=== PATIENT | female | born 1960 | race Caucasian/White ===

== ENCOUNTER → 2024-03-04 06:15 | Day surgery (SDC) | payer OTHER, SELFPAY | LOC: GI 06:15 | PROVIDERS: ATTENDING PHYSICIAN Internal Medicine; FAMILY PHYSICIAN Family Medicine | DX: R10.13 Epigastric pain (principal); K29.80 Duodenitis without bleeding; K29.50 Unspecified chronic gastritis without bleeding; B96.81 Helicobacter pylori [H. pylori] as the cause of diseases classified elsewhere | CPT/HCPCS: 43239; 88305; 88342 ==

== ENCOUNTER → 2024-07-16 15:17 | Outpatient (REF) | payer OTHER, SELFPAY | LOC: RAD 15:17 | PROVIDERS: ATTENDING PHYSICIAN Family Medicine | DX: Z78.0 Asymptomatic menopausal state (principal) | CPT/HCPCS: 77080 ==

== ENCOUNTER 2024-07-26 16:27 | Emergency (ER) | payer OTHER, SELFPAY ==
[2024-07-26 16:29] VITALS: BP 128/88
--- NOTE | 2024-07-26 16:30 | ED.GENMED ---
ED Provider Triage
<Glendy Moss SENIOR MANAGER [facility] - Last Filed: 07/26/24 18:50>
-
Patient seen by provider in Triage?: Seen in Triage
Attestation: A medical screening examination has been initiated by a qualified medical provider. Based on the assessment performed at this time, it has been determined that an emergent medical condition may exist and the patient has been informed
that further medical evaluation and possible additional diagnostic testing may be needed.
HPI: 63-year-old female here for abdominal 'discomfort and distention,' and pencil thin stools with an orangey color she thinks is blood for past month. Sees GI Dr. Muñiz, spoke with her on phone last week, CT scan scheduled for 08/03, pt states she
can't wait that long. Nausea, no vomiting.
Pt extremely distended, thinks she's obstructed, requesting obstruction series before having to drink for CT scan. She is willing to start drinking slowly pending obstruction series result.
GENERAL: Alert , in no apparent distress
EYE: No visual abnormalities.
NECK: Trachea midline
ENT: No visible abnormalities.
LUNGS: No acute respiratory distress
NEUROLOGICAL: Alert and oriented
SKIN: Skin intact. No visible changes.
MUSCULOSKELETAL: Moving extremities normally
PSYCH: Normal and appropriate interaction.
This is a medical evaluation conducted in person to initiate diagnostic evaluation and provide initial therapeutics. Please see further documentation by the treating clinician. Constipation, last BM was 5 days ago
History of Present Illness
<Glendy Moss SENIOR MANAGER [facility] - Last Filed: 07/26/24 18:50>
General
Chief Complaint: Abdominal Symptoms
Time Seen by Provider: 07/26/24 19:48
<Otis Perez MD - Last Filed: 07/26/24 20:08>
General
Source: patient
Exam Limitations: none
Nursing documentation reviewed up to this point in time: agreed with
History of Present Illness
History of Present Illness:
63-year-old female with a past medical history of depression who presents to the emergency department for evaluation of abdominal pain and constipation. Patient reports that symptoms have been ongoing since he reports that she had a bowel
movement morning and has been constipated since then. She has been having some increased abdominal distention and discomfort and ultimately decided to come to the ER for evaluation. She has some mild nausea no vomiting. No fevers or
chills. No urinary symptoms. She reports that she did try an enema as well as [id number] bowel regimens and teas but these efforts have not helped. She says she has had irregular bowel movements really since March when she was treated
for H. pylori through GI. She says she is scheduled for outpatient CT scan in late July and possibly follow-up colonoscopy with Dr. Muñiz. She has a past surgical history of appendectomy and tubal ligation.
Review of Systems
<Otis Perez MD - Last Filed: 07/26/24 20:08>
Review of Systems
All Other Systems: ROS reviewed and negative except as documented in HPI and ROS
Constitutional: Denies fever or chills
Respiratory: Denies trouble breathing
Cardiac: Denies chest pain
ABD/GI: Reports abdominal pain, nausea and constipated; Denies vomiting or diarrhea
: Denies dysuria, frequency or flank pain
Neurological: Denies dizzy or headache
Phy Exam
<Otis Perez MD - Last Filed: 07/26/24 20:08>
Physical Exam
Physical Exam:
General: Awake, alert, oriented x3; no acute distress
Head: Normocephalic, atraumatic
Eyes: Conjunctiva normal, EOMI
Throat: Airway intact, handling secretions
Neck: Trachea midline
Lungs: Breathing comfortably with no distress, no evidence of accessory muscle use
Heart: Regular rate
Abd: Soft, mildly distended, mild tenderness in the lower abdomen
Neuro: No gross deficits
Skin: no rash
Extremities: No edema in extremities, warm and well-perfused
Scores
<Otis Perez MD - Last Filed: 07/26/24 20:08>
Heart Failure Risk
Heart Failure Risk Score: Not Applicable
Heart Score for Chest Pain Patients
STEMI patient?: Not applicable
Withdrawal Assessment of Alcohol
Withdrawal Assessment Completed?: Not applicable
Course
<Glendy Moss NP - Last Filed: 07/26/24 18:50>
Orders/Labs/Results
Orders:
Orders
07/26/24 16:36
Ondansetron Orally Disint [Zofran Odt (Orally Disintegrating)] 4 mg PO NOW STA
07/26/24 16:37
Abdominal Series [CR Obstruct Series W/pa Chest] Urgent
Comment:
Reason For Exam: pain, bloating last BM 4 d ago, can't pass gas
07/26/24 16:46
Iohexol [Omnipaque] 50 ml .ROUTE .STK-MED ONE
07/26/24 16:49
Complete Blood Count/With Diff Urgent
Comprehensive Metabolic Panel Urgent
07/26/24 16:52
Iohexol [Omnipaque] See Protocol PO NOW STA
07/26/24 18:57
CT Abd/pel W Iv And Oral Contr Urgent
Comment:
Reason For Exam: bloating, pain
Iohexol [Omnipaque] See Protocol PO NOW STA
07/26/24 20:01
Magnesium Citrate [Citroma] 300 ml PO ONCE ONE
Abnormal Lab Results
07/26/24
16:49
MCH 31.8 H pg
(27.0-31.0)
Glucose 168 H mg/dl
(70-99)
07/26/24 16:49
07/26/24 16:49
Vital Signs
Initial and Last Documented VS:
Initial Vital Signs
Temp Pulse Resp BP Pulse Ox
36.6 C 68 20 128/88 97
07/26/24 16:29 07/26/24 16:29 07/26/24 16:29 07/26/24 16:29 07/26/24 16:29
Last Documented Vital Signs
Temp Pulse Resp BP Pulse Ox
36.6 C 68 20 128/88 97
07/26/24 16:29 07/26/24 16:29 07/26/24 16:29 07/26/24 16:29 07/26/24 16:29
<Otis Perez MD - Last Filed: 07/26/24 20:08>
Orders/Labs/Results
Orders:
Orders
07/26/24 16:36
Ondansetron Orally Disint [Zofran Odt (Orally Disintegrating)] 4 mg PO NOW STA
07/26/24 16:37
Abdominal Series [CR Obstruct Series W/pa Chest] Urgent
Comment:
Reason For Exam: pain, bloating last BM 4 d ago, can't pass gas
07/26/24 16:46
Iohexol [Omnipaque] 50 ml .ROUTE .STK-MED ONE
07/26/24 16:49
Complete Blood Count/With Diff Urgent
Comprehensive Metabolic Panel Urgent
07/26/24 16:52
Iohexol [Omnipaque] See Protocol PO NOW STA
07/26/24 18:57
CT Abd/pel W Iv And Oral Contr Urgent
Comment:
Reason For Exam: bloating, pain
Iohexol [Omnipaque] See Protocol PO NOW STA
07/26/24 20:01
Magnesium Citrate [Citroma] 300 ml PO ONCE ONE
Abnormal Lab Results
07/26/24
16:49
MCH 31.8 H pg
(27.0-31.0)
Glucose 168 H mg/dl
(70-99)
07/26/24 16:49
07/26/24 16:49
Vital Signs
Initial and Last Documented VS:
Initial Vital Signs
Temp Pulse Resp BP Pulse Ox
36.6 C 68 20 128/88 97
07/26/24 16:29 07/26/24 16:29 07/26/24 16:29 07/26/24 16:29 07/26/24 16:29
Last Documented Vital Signs
Temp Pulse Resp BP Pulse Ox
36.6 C 68 20 128/88 97
07/26/24 16:29 07/26/24 16:29 07/26/24 16:29 07/26/24 16:29 07/26/24 16:29
<Otis Perez MD - Last Filed: 07/26/24 20:08>
MDM/Problems Addressed
Differential Diagnosis Includes:
Constipation, bowel obstruction, diverticulitis
MDM/Problems Addressed:
63-year-old female presents for evaluation of constipation and abdominal pain x 4 days. Vitals and exam as above. She was seen in triage and labs were sent off including a CBC and a CMP�reviewed labs and they showed no clinically significant
abnormalities. She had an obstruction series reviewed by me shows no clear bowel obstruction but mild constipation. Follow-up CT with p.o. and IV contrast showed constipation but no other acute intra-abdominal pathology. Suspect constipation as
cause for symptoms. Will treat with magnesium citrate and started on MiraLAX. We spoke about lifestyle interventions including healthy diet, light exercise and increased water intake. She is already established with gastroenterology (Dr. Muñiz)
and will follow-up as an outpatient. She feels very comfortable with this plan. All questions answered.
<Otis Perez MD - Last Filed: 07/26/24 20:08>
*Radiology
Radiology exam reviewed: radiology read reviewed
*Pulse Oximetry
Patient hypoxic: no
*Critical Care Note
Total Time (30-74mins, 75-104mins- exclusive of procedures): Not Applicable
Data Reviewed
Source: patient
ED Attending Note
<Glendy Moss NP - Last Filed: 07/26/24 18:50>
-
Portions of this chart may have been created with voice recognition software.� Occasional wrong word or��sound alike� substitutions may have occurred due to the inherent limitations of voice recognition software.
Discharge Plan
Departure
Patient Disposition: Home (Routine Discharge)
Date of Disposition: 07/26/24
Time of Disposition: 20:01
Patient with high blood pressure during this ER visit?: No
Discharge Problem:
Abdominal pain, Constipation
Instructions: Constipation, Adult (DC), Abdominal Pain
Prescriptions:
New
polyethylene glycol 3350 [ClearLax] 17 gram/dose powder
4 g PO DAILY Qty: 238 0RF
No Action
sertraline 100 MG tablet
100 mg PO DAILY
rosuvastatin 40 MG tablet
40 mg PO DAILY
coenzyme [id number] E 1 CAP capsule
1 cap PO DAILY
estradiol [Vagifem] 10 MCG tablet
10 mcg VG HS
Referrals:
Davin Muñiz MD [Active] - Call in 1-3 days for appt
Activity Restrictions/Additional Instructions:
Focus on daily light exercise, increased water intake and healthy diet as we discussed. Take MiraLAX once a day to start and if needed you can increase this to twice a day to maintain regular bowel movements daily. You should follow-up with the GI
doctor as we discussed.
Thank you for visiting the Emergency Department at [facility].
1. Please schedule a follow up appointment as directed. Call first thing tomorrow morning to make an appointment.
2. If indicated, please take your medications as instructed and indicated on discharge paperwork.
3. If any of your symptoms do not improve, or persist, or become more severe within 6-12 hours, please return to the emergency department for further care.
4. Please return to the emergency department if you develop a headache, neck pain/stiffness, fever greater than 100.4F, chest pain, shortness of breath, persistent nausea, vomiting, slurred speech, difficulty walking, numbness/tingling, weakness,
signs of infection or any other symptoms that are worrisome to you.
Please call [phone] if you have any questions.
Interventions
Interventions:
*Risk Screen - Suicide Last Done: 07/26/24 16:29
*General Assessment Last Done: 07/26/24 16:29
*Neglect/Abuse Screening Last Done: 07/26/24 16:29
Discharge Date and Time
Print Language: DUTCH
[2024-07-26] MEDS: ZOFRAN ODT (ORALLY DISINTEGRATING) 4 MG PO (16:47)
[2024-07-26] MEDS: OMNIPAQUE 50 ML PO (16:52)
[2024-07-26 17:08] LABS: % Basophils 0.4 % (0-2); % Eosinophils 1.3 % (0-6); % Immature Granulocytes 0.3 % (0-0.5); % Lymphocytes 36.9 % (20.5-51.1); % Monocytes 6.5 % (1.7-9.3); % Neutrophils 54.6 % (42.2-75.2); Absolute Eosinophils 0.1 10^3/uL (0-0.7); Absolute Lymphocytes 2.8 10^3/uL (1.2-3.4); Absolute Monocytes 0.5 10^3/uL (0.1-0.6); Absolute Neutrophils 4.2 10^3/uL (1.4-6.5); Hematocrit 40.4 % (37.0-47.0); Hemoglobin 14.2 g/dL (12.0-16.0); Mean Corp Hgb Conc. 35.1 g/dL (33.0-37.0); Mean Corpuscular Hgb 31.8 pg (27.0-31.0); Mean Corpuscular Volume 90.4 fL (81.0-99.0); Mean Platelet Volume 9.3 fL (7.4-10.4); Nucleated Red Blood Cells % 0 %; Platelet Count 255 10^3/uL (130-400); Red Blood Cell Count 4.47 10^6/uL (4.20-5.40); Red Cell Dist. Width 13.2 % (11.5-14.5); White Blood Cell Count 7.7 10^3/uL (4.8-10.8)
[2024-07-26 17:17] LABS: ALT (SGPT) 26 U/L (0-35); AST (SGOT) 26 U/L (14-36); Albumin 4.4 g/dl (3.5-5.0); Alkaline Phosphatase 68 U/L (38-126); Blood Urea Nitrogen 16 mg/dl (7-17); Calcium 9.4 mg/dl (8.4-10.2); Carbon Dioxide 26 mmol/L (22-30); Chloride 105 mmol/L (98-107); Glucose 168 mg/dl (70-99); Potassium 4.2 mmol/L (3.5-5.1); Sodium 139 mmol/L (135-145); Total Bilirubin 0.4 mg/dl (0.2-1.3); Total Protein 6.8 g/dl (6.3-8.2); eGFR > 60.00
[2024-07-26 20:07] VITALS: BP 159/95
[2024-07-26] MEDS: CITROMA 300 ML PO (20:11)
== END 2024-07-26 20:24 | disposition home or self-care (01) ==
LOC: EMR 16:27
PROVIDERS: Registered Nurse; EMERGENCY PHYSICIAN Emergency Medicine; FAMILY PHYSICIAN Family Medicine
DX: K59.00 Constipation, unspecified (principal); Z90.49 Acquired absence of other specified parts of digestive tract
CPT/HCPCS: 99284; 74022; 74177; 80053; 85025; Q9967

== ENCOUNTER 2024-08-12 06:21 | Day surgery (SDC) | payer OTHER, SELFPAY | END 2024-08-12 12:41 | disposition home or self-care (01) | LOC: GI 06:21 | PROVIDERS: ATTENDING PHYSICIAN Internal Medicine | DX: R19.4 Change in bowel habit (principal); Q43.8 Other specified congenital malformations of intestine; D12.0 Benign neoplasm of cecum; D12.3 Benign neoplasm of transverse colon | CPT/HCPCS: 45385; 45380; 88305 ==

== ENCOUNTER → 2025-06-10 12:24 | Outpatient (REF) | payer OTHER, SELFPAY | LOC: RAD 12:24 | PROVIDERS: ATTENDING PHYSICIAN Family Medicine | DX: F17.210 Nicotine dependence, cigarettes, uncomplicated (principal); F17.200 Nicotine dependence, unspecified, uncomplicated; Z12.2 Encounter for screening for malignant neoplasm of respiratory organs | CPT/HCPCS: 71271 ==

== ENCOUNTER → 2025-06-22 11:28 | Outpatient (REF) | payer SELFPAY | LOC: HWRAD 11:28 | PROVIDERS: ATTENDING PHYSICIAN Family Medicine | DX: E78.00 Pure hypercholesterolemia, unspecified (principal) | CPT/HCPCS: 75571 ==

== ENCOUNTER → 2025-07-02 09:12 | Outpatient (REF) | payer OTHER, SELFPAY | LOC: WDC 09:12 | PROVIDERS: ATTENDING PHYSICIAN Obstetrics & Gynecology Gynecology; FAMILY PHYSICIAN Family Medicine | DX: Z12.31 Encounter for screening mammogram for malignant neoplasm of breast (principal) | CPT/HCPCS: 77063; 77067 ==